=== PATIENT | male | born 1960 | race Caucasian/White ===

== ENCOUNTER → 2016-11-01 12:51 | Outpatient (CLI) | payer BC ==
[2013-11-09 13:21] VITALS: BMI 28.9
[~2016-11-01 12:51] MED LIST: ASPIRIN 81 MG E81 MG PO; ATIVAN0.5 MG PO; MEVACOR40 MG PO; NORVASC5 MG PO; PRILOSEC20 MG PO; PRINZIDE 20/12.1 TAB PO; SOMA350 MG
== END | disposition home or self-care (01) ==
LOC: D.CT 12:51
DX: J32.0 Chronic maxillary sinusitis (principal)

== ENCOUNTER 2016-11-23 08:27 | Day surgery (SDC) | payer BC ==
[~2016-11-23] VITALS: Ht 188 cm; Wt 109.3 kg
[~2016-11-23 08:27] MED LIST changes: +PRINIVIL20 MG PO
[2016-11-23 09:10] LABS: BASOPHILS 0.6 % (0.0-2.0); EOSINOPHILS 3.7 % (0-7); HEMATOCRIT 43.7 % (42.0-54.0); HEMOGLOBIN 14.2 g/dL (13.5-17.5); IMMATURE GRANULOCYTES 0.3 % (0-5); LYMPHOCYTES 35.9 % (15-50); MCH 29.4 pg (26.0-34.0); MCHC 32.5 g/dL (31.0-37.0); MCV 90.5 fL (80.0-100.0); MEAN PLATELET VOLUME 9.7 fL (7.4-10.4); MONOCYTES 9.5 % (2-11); PLATELET COUNT 216 10x3/uL (130-400); RBC 4.83 10x6/uL (4.20-6.10); RDW 14.1 % (11.5-14.5); WBC 7.2 10x3/uL (4.8-10.8)
[2016-11-23 09:26] LABS: CALC OSMOLALITY 283 mosm/kg (275-300); CALCIUM 8.9 mg/dL (8.5-10.1); CARBON DIOXIDE 25.3 mmol/L (21.0-32.0); CHLORIDE - SERUM 106 mmol/L (98-107); GLUCOSE 130 mg/dL (74-106); POTASSIUM - SERUM 4.1 mmol/L (3.5-5.1); SODIUM 141 mmol/L (136-145); UREA NITROGEN 16 mg/dL (7-18); eGFR NON AFRICAN AMERICAN 82 mL/min (90-120)
[2016-11-23 10:44] VITALS: BP 131/74; Ht 188 cm; Wt 109.3 kg
--- NOTE | 2016-11-23 15:00 | NUR ---
1430--PT VOIDS, IV DC'D. FALGUNI PORTER 1450--DISCHARGE INSTRUCTIONS GIVEN, PT VERBALIZES UNDERSTANDING. PT OFF UNIT VIA WC. FALGUNI PORTER
--- NOTE | 2016-11-26 13:10 | OP ---
PATIENT NAME: CHESTER SERVIN MEDICAL RECORD: [id number] :62 LOCATION:[facility] ADMISSION DATE: SURGEON: MANDO ALMONTE MD DATE OF OPERATION: 11/23/2016 PREOPERATIVE DIAGNOSIS: Chronic sinusitis. POSTOPERATIVE DIAGNOSIS: Chronic sinusitis. PROCEDURES: Right middle meatal antrostomy, right anterior ethmoidectomy and bilateral inferior turbinate reduction. SURGEON: Mando Almonte MD ANESTHESIA: General orotracheal. BLOOD LOSS: Less than 5 cc. SPECIMENS: Cultures from the right maxillary sinus. PACKING: None. COMPLICATIONS: None. DISPOSITION: Recovery stable. DESCRIPTION OF PROCEDURE: The patient was brought to the operating room and placed in supine position, sedated and intubated by anesthesia. The table was turned 90 degrees. Using a headlight and a nasal speculum, the nose was examined, the left side looked normal. The right side looked normal as well. Anterior middle turbinate clearly visible, there was purulent drainage from the middle meatus. The base of middle turbinate, the lateral nasal wall and the inferior turbinates were injected with a total of 1.5 cc of 1% lidocaine with 1:100,000 epinephrine. Two Afrin pledgets were placed in each side of the nose and then he was positioned, prepped and draped in the usual fashion for nasal surgery. Then, the right Afrin pledgets were removed. Using a 0-degree scope, the nose was examined. The inferior turbinate was large, but unremarkable. All the way back to the nasopharynx, the septum was normal, nasopharynx was normal. A copious purulence draining from the middle meatus, obscuring the middle turbinate slightly, but the middle turbinate nasal vault appeared normal what could be visualized. A Dresher elevator was used to slightly compress the inferior turbinate laterally to get better visualization and then just a tremendous amount of purulence extruded in the nose. A freer was used to gently medialize the middle turbinate and culture swabs were used to obtain cultures from the maxillary sinus. Then, the purulent drainage was suctioned and then the middle meatus both the lateral aspect of the middle turbinate and the nasal wall around the posterior uncinate was used just all granular. The uncinate was fractured anteriorly and taken down with the microdebrider and the curved olive tip suction was inserted into the maxillary ostia and just copious purulence drained. A microdebrider was used to take down some more lumpy granular tissue around that area and then this sinus was suctioned out using a 30-degree scope. The sinus was examined. It was completely evacuated. The sinus just had a uniform erythematous granular appearance to it and just full of purulence. A 30 cc syringe with the curved olive tip suction and saline was used to irrigate out that sinus repeatedly, get it completely cleaned, now it was visualized and the OPERATIVE REPORT [id number] CHESTER SERVIN sinus looked clean. There was no evidence of any foreign body or any solid material in the sinus, it all rinsed out nicely. Then, the ethmoid cavity was entered inferomedially, the ethmoid bulla and then a little bit posteriorly and then the ethmoid sinuses posterior to that, even the posterior aspect of the anterior ethmoids were clear. There was no evidence of sinusitis there, so that was just cleaned up. The bone fragments were removed and a long curved olive tip suction was inserted into the frontal sinus duct, which seemed patent and clear, so nothing was done to the duct there. Afrin pledget was placed in the middle meatus and then both inferior turbinates were reduced with a Gruenwald inferiorly. A suction cautery was used to stop any bleeding and then both outfractured with a Dresher elevator. Then, Afrin pledget was removed. Again, the area was repeatedly irrigated with saline in a syringe until everything was really completely clean. There was really no bleeding, everything looked really nice and then a 10 cc syringe with some mupirocin ointment and a curved olive tip suction was used to put some mupirocin ointment in that maxillary sinus. The nasopharynx was suctioned. Counts were correct. All the Afrin pledgets were out. There is really no significant bleeding. He was awakened, extubated, and transported to recovery in good condition. No complications. TRANSINT:[id number] Voice Confirmation ID: [id number] DOCUMENT ID: [id number] MANDO ALMONTE MD at 1310 CC: [id number] DICTATION DATE: 11/23/16 1233 CLASSROOM TECHNOLOGY COACH: 11/23/16 1837 [facility] 11/23/16 [facility] [address] [place] [address]
--- NOTE | 2016-11-26 13:10 | HP ---
PATIENT: CHESTER SERVIN MEDICAL RECORD: [id number] ACCOUNT: [id number] [facility] 62 ADMISSION DATE: 11/23/16 HISTORY AND PHYSICAL EXAMINATION Preoperative History and Physical HISTORY OF PRESENT ILLNESS: Mr. Servin is a 56-year-old, who has had problems with right maxillary sinusitis ever since dental infection over a year ago, has been refractory to aggressive medical management. He is admitted for right middle meatal antrostomy, right anterior ethmoidectomy and bilateral turbinate reduction. PAST MEDICAL HISTORY: Includes diabetes and hypertension. PAST SURGICAL HISTORY: Includes quadruple bypass and in 1989, he had surgery for trigeminal neuralgia. CURRENT MEDICATIONS: Lisinopril, lovastatin, omeprazole, low dose aspirin, which has been held prior to the surgery. ALLERGIES: No known drug allergies. PHYSICAL EXAMINATION: GENERAL: Healthy-appearing, developmentally normal. FACE: Normal, symmetric, no lesions. EYES: Sclerae and conjunctivae are normal. EARS: Canals and TMs are normal. NOSE: No masses, polyps, or drainage. ORAL CAVITY AND OROPHARYNX: Normal palate. Tongue protrudes in midline. NECK: No masses, no adenopathy. CHEST: Clear. CARDIOVASCULAR: Regular rate and rhythm, no murmur. EXTREMITIES: No clubbing, cyanosis or edema. DIAGNOSTIC DATA: CAT scan shows complete opacification of the right maxillary sinus disease in the right anterior ethmoids and mucosal thickening in the frontal sinus duct area as well. IMPRESSION: Right chronic maxillary sinusitis, ethmoid and frontal sinusitis secondary to dental infection. PLAN: Right middle meatal antrostomy, right anterior ethmoidectomy, frontal duct was opened and bilateral inferior turbinate reduction. TRANSINT:[id number] Voice Confirmation ID: [id number] DOCUMENT ID: [id number] HISTORY AND PHYSICAL [id number] CHESTER SERVIN BINTA JUAREZ MD at 1310 CC: [id number] DICTATION DATE: 11/21/16 1339 VETERINARY MICROBIOLOGIST: 11/21/16 1452 [facility] 11/23/16 [place] [address]
== END 2016-11-23 14:50 | disposition home or self-care (01) ==
LOC: D.OPS 08:27
PROVIDERS: Anesthesiology
DX: J32.9 Chronic sinusitis, unspecified (principal); J34.3 Hypertrophy of nasal turbinates

== ENCOUNTER → 2018-04-24 09:52 | Outpatient (CLI) | payer BC ==
[2016-11-23 10:44] VITALS: BMI 31.0
== END | disposition home or self-care (01) ==
LOC: D.ECHO 09:52
DX: I10 Essential (primary) hypertension (principal); I25.810 Atherosclerosis of coronary artery bypass graft(s) without angina pectoris; E78.5 Hyperlipidemia, unspecified

== ENCOUNTER → 2018-04-24 17:08 | Outpatient (CLI) | payer BC ==
[2016-11-23 10:44] VITALS: BMI 31.0
--- NOTE | ~2018-04-24 | EC ---
PATIENT:CHESTER SERVIN DATE OF SERVICE: 04/24/18 SEX: M MEDICAL RECORD: [id number] DATE OF : 62 LOCATION:[facility] AGE OF PATIENT: 58 ADMISSION DATE: 04/24/18 REFERRING PHYSICIAN: INTERPRETING PHYSICIAN: LAWRENCE MCCULLOUGH MD ECHOCARDIOGRAM REPORT ECHO CHARGES Date: CLINICAL DIAGNOSIS: ECHOCARDIOGRAPHIC MEASUREMENTS (adult normal given) AC root (d.<3.7cm) cm LV Septum d (<1.2 cm> cm Valve Excursion cm LV Septum (systole) cm Left Atria (s.<4.0cm> cm LVPW d(<1.2cm) cm RV (d.<2.3cm) cm LVPW (sytole) cm LV diastole(<5.6CM) cm MV E-F(>70mm/sec) cm LV systole cm LVOT Diameter cm MV exc.(>10mm) cm Est.ejection fraction (50-75%) % DOPPLER: LVIT cm/sec A cm/sec E cm/sec LA cm/sec RVSP mmHg LVOT cm/sec AOP1/2T m/s Asc. Ao cm/sec RVOT cm/sec RA cm/sec PA cm/sec AV Gradient Peak mmHg AV Mean mmHg AV Area cm MV Gradient Peak mmHg MV Mean mmHg MV Area cm COMMENTS: Footwear Sales Leader: Lineman Apprentice: HEENA# Pericardial Effusion DATE OF SERVICE: PROCEDURE: Transthoracic echocardiogram. FINDINGS: 1. The left ventricle shows evidence of left ventricular hypertrophy. The inflow characteristics are consistent with diastolic dysfunction and ejection fraction 60% to 65%. There is no obvious regional wall motion abnormalities. 2. The left atrium is upper limits of normal to mildly dilated. 3. Aortic valve is not well visualized, but appears to be grossly normal. ECHOCARDIOGRAM REPORT [id number] CHESTER SERVIN 4. The mitral valve appears to be grossly normal, also difficult to visualize. 5. Tricuspid valve functionally appears to be normal. The RVSP is normal. 6. The right atrium is normal. 7. The right ventricle is difficult to visualize, but appears to be overall normal and structurally normal. There is no pericardial effusion. IMPRESSION: The patient has mild hypertensive heart disease, otherwise normal echocardiogram for the patient stated age. TRANSINT:[id number] Voice Confirmation ID: [id number] DOCUMENT ID: [id number] LAWRENCE MCCULLOUGH MD CC: [id number] DICTATION DATE: 04/25/18906 COVER SEAMER: 04/25/18 0955 [facility] CLI 04/24/18 [id number] [place] [address]
[2018-04-24 19:01] LABS: BILIRUBIN - DIRECT 0.11 mg/dL (0.00-0.30); BILIRUBIN - INDIRECT 0.22 mg/dL (0.00-1.00); BILIRUBIN - TOTAL 0.33 mg/dL (0.2-1.3); CHOL - HDL RATIO 7.1 ratio (2.3-4.9); LDL-HDL RATIO 4.6 ratio (1.5-3.5); PROTEIN - SERUM 7.2 g/dL (6.4-8.2)
== END | disposition home or self-care (01) ==
LOC: D.LABREF 17:08
PROVIDERS: Internal Medicine Cardiovascular Disease
DX: I10 Essential (primary) hypertension (principal)